=== PATIENT | male | born 1960 | race Caucasian/White ===

== ENCOUNTER 2024-04-06 01:28 | Emergency (ER) | payer OTHER, SELFPAY ==
[2024-04-06 01:31] VITALS: BP 155/83; PULSE 97; RESP 18; TEMP 37.3; O2SAT 100; BMI 33.7
--- NOTE | 2024-04-06 02:16 | CT_ITS ---
STUDY: CT ABDOMEN AND PELVIS WITHOUT CONTRAST REASON FOR EXAM: Male, 64 years old patient with kidney stone. RADIATION DOSAGE (If Supplied By Facility): CTDIvol = ( 14.68 ) mGy, DLP = ( 755.73 ) mGycm TECHNIQUE: Transaxial images were obtained from the dome of the diaphragm to the symphysis pubis without oral contrast, and without intravenous contrast. Sagittal and coronal images were reconstructed. Individualized dose optimization techniques were used for this CT. COMPARISON: Prior comparison studies are not available for review at this time. FINDINGS: The visualized lung bases are unremarkable. The visualized portions of the heart are within normal limits. Normal liver. There are surgical clips in the gallbladder fossa consistent with a prior cholecystectomy. Normal spleen. Normal pancreas. Normal bilateral adrenal glands. There are multiple nonobstructing right-sided renal calculi ranging in size from 1 to 5 mm in size. There is moderately severe left-sided hydronephrosis and hydroureter secondary to distal ureteral calculus measuring 7 mm in greatest dimension. There is a left-sided renal cyst measuring approximately 3.7 cm in greatest dimension. There is left-sided perinephric fluid and stranding. Normal visualized stomach. There is no obvious dilated bowel, ascites or pneumoperitoneum. The small bowel has a grossly normal appearance. There is stool and/or gas visible within the colon with scattered diverticula. The appendix is visualized and appears normal. There is minimal atherosclerotic calcification of the abdominal aorta, without a demonstrated aneurysm. Normal inferior vena cava. Normal retroperitoneum. Normal urinary bladder. Normal visualized prostate gland. There is a right-sided inguinal hernia containing adipose tissue. Thoracic and lumbar vertebral bodies have essentially normal height and alignment. There appears to be a prominent enthesophyte anterior to the L3-4 level. The bony pelvis has a grossly normal appearance. CT/Abdomen/Pelvis without Cont IMPRESSION: 1. Moderately large left-sided hydronephrosis and hydroureter secondary to distal ureteral calculus. 2. Bilateral nonobstructing renal calculi. Electronically Signed: Shantel Chinchilla MD at 3:34 EDT ,
[2024-04-06 02:18] LABS: Basophil# 0.03 X10^3/uL; Basophil% 0.3 % (0-1); Eosinophil# 0.07 X10^3/uL; Eosinophils% 0.7 % (0-5); Hematocrit 43.8 % (40-54); Hemoglobin 14.6 g/dL (13.0-16.5); Lymphocyte % 25.3 % (19-41); Mean Corp Hgb Conc 33.3 g/dL (32-36); Mean Corpuscular Volume 86.9 fL (80-94); Mean Platelet Vol. 8.9 fl (6.2-12.0); Monocyte# 0.89 X10^3/uL; Monocyte% 9.4 % (0-10); NRBC Flagged by Analyzer 0 % (0-5); Neutrophil # 6.03 X10^3/uL (2.7-7.7); Neutrophil % 63.8 % (47-70); Platelet Count 229 K/mm3 (150-450); RBC Distribution Width CV 12.6 % (11.6-14.6); RBC Distribution Width SD 39.3 fl (35.1-43.9); Red Blood Count 5.04 M/mm3 (4.6-6.2); White Blood Count 9.5 K/mm3 (4.4-11.0)
--- NOTE | 2024-04-06 02:18 | EX.ED.DYSGE1 ---
HPI History of Present Illness Chief Complaint: Flank Pain Informant: patient Narrative Narrative: Left side abdominal pain rating to her groin 5 hours ago. Nausea vomit x 1. No urinary symptoms. History of kidney stones in the past last time 4 years ago. Diabetes hyperlipidemia history. No kidney injury. No allergies. Currently symptoms subsided. Prior similar symptoms: Yes PFSH [facility] Medical History Hyperlipidemia Diabetes Kidney stones Home Medications ?Medication ?Instructions ?Recorded ?Last Taken ?Type metformin 500 mg tablet 500 mg PO BID 04/06/24 Unknown History metoprolol succinate 25 mg 25 mg PO DAILY 04/06/24 Unknown History tablet,extended release 24 hr omeprazole 20 mg capsule,delayed 20 mg PO DAILY 04/06/24 Unknown History release ondansetron 4 mg disintegrating 4 mg PO Q8H PRN PRN Nausea #10 tabs 04/06/24 Unknown Rx tablet oxycodone-acetaminophen 5 mg-325 1 tab PO Q6H PRN PRN Pain 3 days 04/06/24 Unknown Rx mg tablet #12 TABLETS potassium citrate 10 mEq (1,080 10 meq PO DAILY 04/06/24 Unknown History mg) tablet,extended release rosuvastatin 20 mg tablet (Crestor) 20 mg PO DAILY 04/06/24 Unknown History semaglutide 1 mg/dose (4 mg/3 mL) 1 mg subcut QWEEK 04/06/24 Unknown History subcutaneous pen injector (Ozempic) tadalafil 5 mg tablet (Cialis) 5 mg PO DAILY 04/06/24 Unknown History tamsulosin 0.4 mg capsule 0.4 mg PO DAILY #7 CAPSULES 04/06/24 Unknown Rx valsartan 80 mg tablet 80 mg PO DAILY 04/06/24 Unknown History Allergy/AdvReac Type Severity Reaction Status Date / Time No Known Allergies Allergy Verified 04/06/24 01:30 Social History Smoking Status: Never smoker ROS ROS ED Constitutional Constitutional ED: Denies chills, fever(s) or sweats Eyes Eyes: Denies change in vision ENT ENT ED: Denies dysphagia or sore throat Cardiovascular Cardiovascular: Denies chest pain, leg edema, palpitations or racing heartbeat Respiratory/Chest Respiratory/Chest: Denies cough, dyspnea or dyspnea on exertion Gastrointestinal Gastrointestinal: Reports abdominal pain, nausea and vomiting; Denies diarrhea Genitourinary Genitourinary ED: Denies dysuria, hematuria or urinary frequency Musculoskeletal Musculoskeletal: Denies back pain, extremity pain or neck pain Integumentary Denies rash or wounds Neurologic Neurologic: Denies headache(s), paresthesias or weakness EXAM Physical Exam Const Vital Signs: 04/06/24 01:31 04/06/24 03:30 04/06/24 05:00 Temperature 99.1 F Temperature Source Oral Pulse Rate 97 80 74 Respiratory Rate 18 16 16 Blood Pressure 155/83 H 150/73 H 130/74 H Blood Pressure Mean 107 98 92 Pulse Ox 100 98 98 Oxygen Delivery Method Room Air Room Air Room Air 04/06/24 05:04 Temperature 97.9 F Temperature Source Pulse Rate 74 Respiratory Rate 16 Blood Pressure 130/74 H Blood Pressure Mean 92 Pulse Ox 98 Oxygen Delivery Method Positive well nourished and well developed General Appearance ED: well developed and NAD HEENT Reports moist mucous membranes normocephalic and atraumatic Eyes EOMs intact bilaterally and conjunctivae normal General Eye ED: Yes normal appearance of both eyes Neck no lymphadenopathy and supple General: Negative for tenderness Chest Wall Chest: Negative for tenderness Resp normal respiratory effort and normal air movement Effort and Inspection: symmetric chest movement; Negative for respiratory distress Cardio regular rate, regular rhythm and no murmurs Peripheral Pulses: pulses 2+ throughout GI normal to inspection, nondistended, normoactive bowel sounds and non-tender Palpation: Negative for guarding or rebound tenderness present Back/Spine no CVA tenderness and no thoracic nor lumbar tenderness Extremity normal to inspection General Extremety ED: Negative for edema or tenderness General Extremity: Negative for edema Neuro oriented x3 and no sensory deficits noted Sensorium / Orientation: awake and alert Skin no rashes or lesions noted and no wounds MDM MDM MDM Narrative Medical decision making narrative: Interventions / MDM: Differential diagnosis: Kidney stone Diagnosis considered but do not suspect: Colitis however CT negative My EKG interpretation: N/A Imaging independently reviewed and interpreted by myself: CT abdomen pelvis: 7 mm distal ureteral stone hydronephrosis. Nephrolithiasis. Also read by radiology. External documents reviewed: N/A Test considered but not ordered:N/A ED course: Patient currently more comfortable. Renal stone protocol will be ordered. He is not currently nauseated. Will treat with Toradol. CT scan ordered. Labs and urine are pending. Labs with creatinine 1.4. He denied any history of kidney issues. No old labs as he is visiting from [place]. White count 9.5 urine blood 25 leukocytes, insulin for any bacterial concerns. CT scan confirmed 7 mm stone. Require additional pain control with morphine. Reevaluation pain controlled I discussed the 7 cm stone that may not possibly pass. However patient states he needed to catch a flight at 2 PM. Prescription for Flomax oxycodone Zofran sent to the pharmacy for pickup. He has his friend present. The pickup prescription. He will follow-up with his urologist in [place]. All questions were answered. Re-evaluation: stable Disposition discussed with patient/family/significant other: Patient Case discussed with consulting clinician: N/A This note was generated with [email or web address] dictation software. It may contain incorrect words, spelling, and punctuation that were not noted in checking the note before signing. Lab Data Attestation: I reviewed the patient's lab results. Labs: Laboratory Results - last 24 hr 04/06/24 04/06/24 01:36 02:59 WBC 9.5 RBC 5.04 Hgb 14.6 Hct 43.8 MCV 86.9 MCH 29.0 MCHC 33.3 RDW Std Deviation 39.3 RDW Coeff of Wale 12.6 Plt Count 229 MPV 8.9 Immature Gran % (Auto) 0.500 Neut % (Auto) 63.8 Lymph % (Auto) 25.3 Villalba % (Auto) 9.4 Eos % (Auto) 0.7 Baso % (Auto) 0.3 Absolute Neuts (auto) 6.0 Absolute Lymphs (auto) 2.40 Nucleated RBC % 0 Sodium 140 Potassium 3.7 Chloride 109 H Carbon Dioxide 24.0 Anion Gap 7 BUN 18 Creatinine 1.40 H Estim Creat Clear Calc 60.15 Est GFR (MDRD) Af Amer 66 Est GFR (MDRD) Non-Af 54 L BUN/Creatinine Ratio 12.9 Glucose 191 H Calcium 8.6 Total Bilirubin 0.40 AST 14 L ALT 37 Alkaline Phosphatase 80 Total Protein 6.9 Albumin 3.9 Globulin 3.0 Albumin/Globulin Ratio 1.3 Urine Color Yellow Urine Clarity Clear Urine pH 5.0 Ur Specific [place] 1.025 Urine Protein 30 H Urine Glucose (UA) 50 H Urine Ketones Negative Urine Occult Blood 250 H Urine Nitrite Negative Urine Bilirubin Negative Urine Urobilinogen Normal Ur Leukocyte Esterase 25 H Urine RBC 25-50 SEEN Urine WBC 0 SEEN Ur Squamous Epith Cells 0 SEEN Urine Bacteria 0 SEEN Urine Mucus 0 SEEN Radiography Diagnostic Testing: Clinical Impression(s) from Imaging Studies Abdomen/Pelvis CT 04/06/24 02:16 IMPRESSION: 1. Moderately large left-sided hydronephrosis and hydroureter secondary to distal ureteral calculus. 2. Bilateral nonobstructing renal calculi. Electronically Signed: Shantel Chinchilla MD at 3:34 EDT Reading Location ID and State: [address] [place] [address] , Service support , Discharge Plan Triage Chief Complaint: Flank Pain ED Provider: James Sanderson Dx/Rx/DC Orders Clinical Impression: Kidney stone on left side, Renal colic on left side Instructions: ED Kidney Stone with Pain Prescriptions: New oxycodone-acetaminophen 5-325 mg tablet 1 tab PO Q6H PRN PRN (Reason: Pain) 3 Days Qty: 12 0RF tamsulosin 0.4 mg capsule 0.4 mg PO DAILY Qty: 7 0RF ondansetron 4 mg tablet,disintegrating 4 mg PO Q8H PRN PRN (Reason: Nausea) Qty: 10 0RF No Action metformin 500 mg tablet 500 mg PO BID omeprazole 20 mg capsule,delayed release(DR/EC) 20 mg PO DAILY Ozempic 1 mg/dose (4 mg/3 mL) pen injector 1 mg subcut QWEEK potassium citrate 10 mEq (1,080 mg) tablet extended release 10 meq PO DAILY rosuvastatin [Crestor] 20 mg tablet 20 mg PO DAILY tadalafil [Cialis] 5 mg tablet 5 mg PO DAILY metoprolol succinate 25 mg tablet extended release 24 hr 25 mg PO DAILY valsartan 80 mg tablet 80 mg PO DAILY Primary Care Provider: KYLAH OJEDA Referrals: [facility] Doctor,Out of [Non-Staff] - Activity Restrictions/Additional Instructions: You have a 7 mm stone left distal ureter. Urine without infection. Take medication as prescribed. Follow-up with your urologist back home in [place]. Print Language: Korean Disposition Disposition: Home, Self Care Discharge Date/Time: 04/06/24 05:04
[2024-04-06 02:37] LABS: ALB/GLOB Ratio 1.3 RATIO (0.9-2.4); AST(SGOT) 14 U/L (15-37); Alanine Aminotransfer ALT/SGPT 37 U/L (16-61); Albumin, Serum 3.9 g/dL (3.2-5.0); Alkaline Phosphatase 80 U/L (45-117); Anion Gap 7 (5-15); BUN 18 mg/dL (7-18); BUN/Creat Ratio 12.9 RATIO (10-20); Calcium,Total 8.6 mg/dL (8.5-10.1); Chloride 109 mmol/L (98-107); EST Glomerular Filtration Rate 54 mL/min (>60); Est Glom Filt Rate - Afr Amer 66 mL/min (>60); Estimated Creatinine Clearance 60.15 ml/min; Glucose 191 mg/dL (74-106); Potassium 3.7 mmol/L (3.5-5.1); Protein, Total 6.9 g/dL (6.4-8.2); Sodium Level 140 mmol/L (136-145)
[2024-04-06] MEDS: Ketorolac 15 MG/ML Vial IV (02:51)
[2024-04-06 03:03] LABS: Bacteria 0 SEEN /hpf (None Seen); Mucous, Urine 0 SEEN /hpf (<or=2+); Squamous Epithelial Cells - UA 0 SEEN /hpf (0-5); White Blood Cells 0 SEEN /hpf (0-5)
[2024-04-06 03:08] LABS: Color, Urine Yellow (Yellow); Glucose, Dipstick 50 mg/dl (Normal); Ketone-Dipstick Negative (Negative); Leukocyte Esterase-Dipstick 25 /ul (Negative); Nitrite-Dipstick Negative (Negative); Occult Blood-Urine 250 /ul (Negative); Protein-Dipstick 30 mg/dl (Negative); Specific Gravity, Urine 1.025 (1.002-1.030); Urine Bilirubin Dipstick Negative (Negative); Urine Clarity Clear (Clear); Urine Urobilinogen Normal (Normal)
[2024-04-06 03:18] LABS: Red Blood Cells-Urine 25-50 SEEN /hpf (0-5)
[2024-04-06 03:30] VITALS: BP 150/73; PULSE 80; RESP 16; O2SAT 98
[2024-04-06] MEDS: Morphine 4 MG/ML Syringe IV (04:07)
[2024-04-06 05:00] VITALS: BP 130/74; PULSE 74; RESP 16; O2SAT 98
[2024-04-06 05:04] VITALS: BP 130/74; PULSE 74; RESP 16; TEMP 36.6; O2SAT 98
== END 2024-04-06 05:04 | disposition home or self-care (01) ==
PROVIDERS: Emergency Provider Emergency Medicine; Visit Provider Emergency Medicine
DX: N13.2 Hydronephrosis with renal and ureteral calculous obstruction (principal); E11.9 Type 2 diabetes mellitus without complications; N23 Unspecified renal colic; E78.5 Hyperlipidemia, unspecified; Z79.899 Other long term (current) drug therapy; Z79.84 Long term (current) use of oral hypoglycemic drugs
CPT/HCPCS: 74176; 80053; 81001; 85025; 96374; 96375; 99283; A4216